=== PATIENT | female | born 1980 | race Caucasian/White ===

== ENCOUNTER → 2016-09-30 | Outpatient (CLI) | payer OTHER ==
--- NOTE | 2016-09-30 10:41 | KCIC ---
PROCEDURE MRI cervical spine without contrast. HISTORY Tension headaches, pressure on top of head and the back of the neck, worse for the last 6 weeks TECHNIQUE Multiplanar, multi sequential non contrast MR imaging was performed of the cervical spine. COMPARISON None FINDINGS Cervical vertebral body stature and AP alignment are adequate. There is posterior annular tear C4-5. Cervical cord caliber is within normal limits without focal signal abnormality. There is no abnormality of the cervical medullary junction. There is mild mucosal thickening of the visualized sphenoid sinus. There is no significant marrow edema. There is mild disc desiccation C4-5. C2-3: Spinal canal and neural foramina are adequate. C3-C4: Spinal canal and neural foramina are adequate. C4-5: There is a negligible posterior central protrusion. Spinal canal and neural foramina are adequate. C5-C6: There is negligible posterior bulge. Spinal canal and neural foramina are adequate. There is anterior annular tear. C6-7: Spinal canal and neural foramina are adequate. C7-T1: Spinal canal and neural foramina are adequate. IMPRESSION 1. There is no cervical spinal stenosis or neural foramina compromise. There is a very shallow posterior central protrusion at C4-5 and negligible posterior bulge at C5-C6. Electronically signed by: Alfredo Porter MD (Sep 30, 2016 10:38:59)
== END | disposition home or self-care (01) ==
LOC: KCIC MRI 09:51
PROVIDERS: ATTEND Family Medicine
DX: G44.209 Tension-type headache, unspecified, not intractable (principal)
CPT/HCPCS: 72141